=== PATIENT | male | born 1990 | race Native Hawaiian/Other Pacific Islander ===

== ENCOUNTER 2021-08-11 17:39 | Emergency (ER) | payer OTHER ==
[~2021-08-11] VITALS: Ht 175.3 cm; Wt 74.8 kg
[2021-08-11 18:50] LABS: PLATELET COUNT 290 K/uL (142-355)
[2021-08-11 18:57] LABS: POTASSIUM 4.2 mmol/L (3.6-5.2)
[2021-08-11 19:07] LABS: PARTIAL THROMBOPLASTIN TIME 23.6 SECONDS (24.5-33.6)
[2021-08-12 00:05] VITALS: BP 116/73; TEMP 97.9
== END 2021-08-12 00:05 | disposition home or self-care (01) ==
LOC: ED 17:39
PROVIDERS: Emergency Medicine
DX: S70.11XA Contusion of right thigh, initial encounter (principal); S00.33XA Contusion of nose, initial encounter; R04.0 Epistaxis; R51.9 Headache, unspecified; V53.6XXA Passenger in pick-up truck or van injured in collision with car, pick-up truck or van in traffic accident, initial encounter; Y92.488 Other paved roadways as the place of occurrence of the external cause
CPT/HCPCS: 36415; 80048; 85027; 85610; 85730; 93005; 99283